=== PATIENT | female | born 1930 | race Caucasian/White ===

== ENCOUNTER 2016-12-04 07:56 | Emergency (ER) | payer MEDICARE, OTHER ==
[2016-12-04] MEDS ORDERED: Metoprolol Tartrate 50 MG Tab PO ONE (08:18)
[2016-12-04] MEDS ORDERED: Diltiazem 120 MG Cap.CD PO ONE (08:22)
[2016-12-04] MEDS ORDERED: Doxazosin 2 MG Tab PO ONE (08:23)
--- NOTE | 2016-12-04 08:28 | EDM.PDOC ---
ED HPI GENERAL MEDICAL PROBLEM - General Chief Complaint: Cardiovascular Problem Stated Complaint: [facility] Time Seen by Provider: 12/04/16 08:09 Source of Information: Reports: Patient, RN Notes Reviewed - History of Present Illness INITIAL COMMENTS - FREE TEXT/NARRATIVE: 86-year-old female started feeling nonspecific dizziness this morning. Just didn 't feel "well". She checked her blood pressure and obtained a systolic reading a bit over 200. Therefore she and her called the ambulance. She is having no chest pain or difficulty breathing. She was transported here without incident. On arrival to the ED she still feels mildly "dizzy". SHe continues to have no chest pain or shortness of breath. She states she's been coughing for about a week sometimes productive. Had surgery in her low back a few weeks ago. She has been home for about 2 weeks and in her words "recovering slowly". States she is using a walker to get around. She is getting some physical therapy at home. She states she has had some chills off and on this past week. No definite fever. Dominant pain vomiting or diarrhea. She is on multiple meds for hypertension, she has not taken mostly at this morning - Related Data Allergies Allergy/AdvReac Type Severity Reaction Status Date / Time rosuvastatin calcium Allergy Intermediate Swelling Verified 12/04/16 08:11 [From Crestor] acetaminophen Allergy Cannot Verified 12/04/16 08:11 [From Darvocet-N 100] Remember atorvastatin calcium Allergy Cannot Verified 12/04/16 08:11 [From Lipitor] Remember clindamycin Allergy Cannot Verified 12/04/16 08:14 Remember colchicine Allergy Cannot Verified 12/04/16 08:15 Remember cyclobenzaprine HCl Allergy Cannot Verified 12/04/16 08:11 [From Flexeril] Remember hydralazine [Hydralazine] Allergy Cannot Verified 12/04/16 08:11 Remember hydrochlorothiazide Allergy Cannot Verified 12/04/16 08:11 Remember hydrocodone bitartrate Allergy Cannot Verified 12/04/16 08:11 [From Lorcet 10/650] Remember lisinopril Allergy Cannot Verified 12/04/16 08:13 Remember losartan potassium Allergy Cannot Verified 12/04/16 08:11 [From Cozaar] Remember pravastatin sodium Allergy Cannot Verified 12/04/16 08:11 [From Pravachol] Remember propoxyphene napsylate Allergy Cannot Verified 12/04/16 08:11 [From Darvocet-N 100] Remember allopurinol AdvReac Mild Nausea Verified 12/04/16 08:11 calcium AdvReac Mild Stomach Verified 08/21/14 04:43 Ache isosorbide [Isosorbide] AdvReac Mild Headache Verified 12/04/16 08:11 Home Meds: Home Meds Calcitriol [Rocaltrol] 0.25 mcg PO MOWEFR 08/21/14 [History] Cholecalciferol (Vitamin D3) [Vitamin D] 2,000 unit PO DAILY 08/21/14 [History] Colesevelam HCl [Welchol] 625 mg PO BID 08/21/14 [History] Diltiazem [Cardizem] 30 mg PO Q6H #120 tab 08/21/14 [Rx] Doxazosin Mesylate [Cardura] 2 mg PO BID 08/21/14 [History] Fish Oil/[place]-3 Fatty Acids [Fish Oil] 1,000 mg PO DAILY 08/21/14 [History] Furosemide [Lasix] 40 mg PO DAILY 08/21/14 [History] Levothyroxine Sodium [Synthroid] 75 mcg PO SUTUTHSA 08/21/14 [History] Metoprolol Succinate [Toprol XL] 25 mg PO DAILY 08/21/14 [History] Multivitamin [Multivitamins] 2 cap PO DAILY 08/21/14 [History] Omeprazole 20 mg PO DAILY PRN 08/21/14 [History] Levothyroxine [Synthroid] 50 mcg PO MOWEFR 12/04/16 [History] Past Medical History HEENT History: Reports: Impaired Vision Cardiovascular History: Reports: Hypertension 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 Denies: Fever, Diaphoresis HEENT: Denies: Sinus Problem, Throat Pain Respiratory: Reports: Cough, Sputum. Denies: Shortness of Breath, Wheezing Cardiovascular: Denies: Chest Pain Endocrine: Reports: Fatigue GI/Abdominal: Denies: Abdominal Pain, Diarrhea, Nausea, Vomiting Musculoskeletal: Reports: Back Pain (Low back) Neurological: Reports: Weakness (Mild generalized). Denies: Numbness, Tingling ED EXAM, GENERAL - Physical Exam Exam: See Below General Appearance: Alert, No Apparent Distress Eye Exam: Bilateral Eye: PERRL Throat/Mouth: Normal Inspection, Normal Oropharynx Head: Atraumatic. No: Facial Swelling Neck: Supple, Full Range of Motion, Other Respiratory/Chest: No Respiratory Distress (No JVD), Lungs Clear, Normal Breath Sounds. No: Rales, Rhonchi, Wheezing Cardiovascular: Regular Rate, Rhythm GI/Abdominal: Soft, Non-Tender. No: Guarding Back Exam: No: CVA Tenderness (L), CVA Tenderness (R) Extremities: No: Pedal Edema, Leg Pain, Increased Warmth Skin Exam: Warm, Dry, Normal Color Course - Vital Signs Last Recorded V/S: Last Vital Signs Temp 97.8 F 12/04/16 08:08 Pulse 76 12/04/16 08:46 Resp 16 12/04/16 08:08 BP 160/77 H 12/04/16 08:47 Pulse Ox 97 12/04/16 08:08 - Orders/Labs/Meds Orders: Active Orders 24 hr Category Date Time Status EKG 12 Lead [EKG Documentation Completion] [RC] STAT Care 12/04/16 08:28 Active Chest 1V Frontal [CR] Stat Exams 12/04/16 08:17 Taken Labs: Laboratory Tests 12/04/16 12/04/16 Range/Units 08:35 08:35 WBC 6.19 (3.98-10.04) K/mm3 RBC 4.04 (3.98-5.22) M/mm3 Hgb 12.3 (11.2-15.7) gm/L Hct 37.0 (34.1-44.9) % MCV 91.6 (79.4-94.8) fl MCH 30.4 (25.6-32.2) pg MCHC 33.2 (32.2-35.5) g/dl RDW Std Deviation 49.3 H (36.4-46.3) fL Plt Count 280 (182-369) K/mm3 MPV 8.5 L (9.4-12.3) fl Neut % (Auto) 55.4 (34.0-71.1) % Lymph % (Auto) 21.6 (19.3-51.7) % [place] % (Auto) 16.2 H (4.7-12.5) % Eos % (Auto) 5.5 (0.7-5.8) Baso % (Auto) 0.8 (0.1-1.2) % Neut # (Auto) 3.43 (1.56-6.13) K/mm3 Lymph # (Auto) 1.34 (1.18-3.74) K/mm3 [place] # (Auto) 1.00 H (0.24-0.36) K/mm3 Eos # (Auto) 0.34 (0.04-0.36) K/mm3 Baso # (Auto) 0.05 (0.01-0.08) K/mm3 Manual Slide Review Normal smear Sodium 133 L (136-145) mEq/L Potassium 4.1 (3.5-5.1) mEq/L Chloride 98 (98-107) mEq/L Carbon Dioxide 27 (21-32) mEq/L Anion Gap 12.1 (5-15) BUN 18 (7-18) mg/dL Creatinine 1.3 H (0.55-1.02) mg/dL Est Cr Clr Drug Dosing 25.58 mL/min Estimated GFR (MDRD) 39 (>60) mL/min BUN/Creatinine Ratio 13.8 L (14-18) Glucose 106 (83-115) mg/dL Calcium 9.4 (8.5-10.1) mg/dL Total Bilirubin 0.3 (0.2-1.0) mg/dL AST 24 (15-37) U/L ALT 24 (14-59) U/L Alkaline Phosphatase 61 (46-116) U/L Total Protein 7.2 (6.4-8.2) g/dl Albumin 3.5 (3.4-5.0) g/dl Globulin 3.7 gm/dL Albumin/Globulin Ratio 1.0 (1-2) Meds: Medications Discontinued Medications Generic Name Dose Route Start Last Admin Trade Name Freq PRN Reason Stop Dose Admin Diltiazem HCl 120 mg 12/04/16 08:22 12/04/16 08:46 Cardizem Cd PO 12/04/16 08:23 120 mg ONETIME ONE Administration Doxazosin Mesylate 2 mg 12/04/16 08:23 12/04/16 08:47 Cardura PO 12/04/16 08:24 2 mg ONETIME ONE Administration Metoprolol Tartrate 50 mg 12/04/16 08:18 12/04/16 08:27 Lopressor PO 12/04/16 08:19 50 mg ONETIME ONE Administration - Re-Assessments/Exams Free Text/Narrative Re-Assessment/Exam: 12/04/16 10:05 Blood pressure has gradually trended down. X-ray is clear. Labs look good. Discharge instructions as documented Departure - Departure Time of Disposition: 09:50 Disposition: Home, Self-Care 01 Condition: Fair Clinical Impression: Hypertension Qualifiers: Hypertension type: essential hypertension Qualified Code(s): I10 - Essential ( primary) hypertension Forms: ED Department Discharge Additional Instructions: Continue current medications, drink plenty of water to maintain hydration. Follow up clinic as needed, return to ED as needed - My Orders Last 24 Hours: My Active Orders 12/04/16 08:17 Chest 1V Frontal [CR] Stat 12/04/16 08:28 EKG 12 Lead [EKG Documentation Completion] [RC] STAT - Assessment/Plan Last 24 Hours: My Active Orders 12/04/16 08:17 Chest 1V Frontal [CR] Stat 12/04/16 08:28 EKG 12 Lead [EKG Documentation Completion] [RC] STAT
[2016-12-04 12:14] VITALS: BP 159/68
--- NOTE | 2016-12-06 07:53 | CR ---
Chest: Portable view of the chest was obtained. Comparison: Previous chest x-ray of 08/21/14. Heart size at the upper limits of normal. Upper mediastinum is slightly widened believed to be due to tortuous great vessels. Tortuous thoracic aorta is seen. Minimal nodularity is noted within the right upper lung believed to represent costochondral calcification. Lungs are clear with no acute infiltrates. Bony structures are osteopenic. Mild scoliosis is present. Impression: 1. Incidental findings as noted above. Nothing acute is appreciated. Diagnostic code #2
== END 2016-12-04 10:35 | disposition home or self-care (01) ==
LOC: JD.ED 07:56
DX: I10 Essential (primary) hypertension (principal); Z98.890 Other specified postprocedural states; Z79.899 Other long term (current) drug therapy; Z88.1 Allergy status to other antibiotic agents; Z88.5 Allergy status to narcotic agent; Z88.6 Allergy status to analgesic agent; Z88.8 Allergy status to other drugs, medicaments and biological substances
CPT/HCPCS: 36415; 71010; 80053; 85025; 93005; 99285; A9270; 99284

== ENCOUNTER 2016-12-06 08:06 | Emergency (ER) | payer MEDICARE, OTHER ==
--- NOTE | 2016-12-06 08:36 | EDM.PDOC ---
ED HPI GENERAL MEDICAL PROBLEM - General Chief Complaint: Back Pain or Injury Stated Complaint: LIGHTHEADED AND WEAK Time Seen by Provider: 12/06/16 08:34 Source of Information: Reports: Patient History Limitations: Reports: No Limitations - History of Present Illness INITIAL COMMENTS - FREE TEXT/NARRATIVE: 86-year-old female attends the ED with severe chronic back pain not remedied by recent surgery [address] Posey in [place]. She still has severe right-sided sciatica and for the last few days x-rays worse than his head was in the past. She said no relief from surgical intervention. It's she's not sure what was done with the results any pedicle screws placed or disc spacers etc. Fairly surgery was 3 hours long and is unexpectedly longer than planned. She been trying to use the hydrocodone tablets 2 tablets every 6 hours but they make her quite nauseated dizzy lightheaded and in of unable to eat. He continues to lose weight. She is very dry in the mouth today. She didn't sleep hardly at all last night because she'll he took one tablet of the pain pill at bedtime trying to herself off. Therefore her major problem is pain management. States her bowels are functioning with the aid of Senokot and she is emptying her bladder normally. Onset: Gradual (Assessment low back pain with right-sided sciatica for months. Not remedied by Kenalog injections by Dr. Stark. Finally went on to have surgical intervention with Dr. Posey neurosurgeon at [facility] in [place]. This was done November 12. She reports no improvement if anything is perhaps worse than she was before the surgery.) Onset Date: 12/06/16 (Worse pain overnight.) Duration: Week(s):, Constant, Getting Worse Location: Reports: Back (With right-sided sciatica.) Quality: Reports: Ache, Burning, Same as Previous Episode, Sharp, Throbbing, Other Severity: Severe (Lancinating) Improves with: Reports: None ( currently pain is 9 out of 10.) Worsens with: Reports: Other (Standing weightbearing) Context: Reports: Other (Severe degenerative disc and arthritic changes in her lower back. Compounded by osteoporosis.). Denies: Activity, Exercise, Lifting, Sick Contact, Trauma Associated Symptoms: Reports: Malaise, Nausea/Vomiting, Weakness (Nausea without vomiting), Other (Dizzy and lightheaded.). Denies: Confusion, Chest Pain, Cough, cough w sputum, Diaphoresis, Fever/Chills, Headaches, Loss of Appetite, Rash, Seizure, Shortness of Breath, Syncope Treatments HRIS COORDINATOR: Reports: Other (see below) (Hydrocodone tablets 2 every 6 hours. ) Lower Back Pain Score (Numeric/FACES): 10 - Related Data Allergies Allergy/AdvReac Type Severity Reaction Status Date / Time rosuvastatin calcium Allergy Intermediate Swelling Verified 12/06/16 08:15 [From Crestor] acetaminophen Allergy Cannot Verified 12/06/16 08:15 [From Darvocet-N 100] Remember atorvastatin calcium Allergy Cannot Verified 12/06/16 08:15 [From Lipitor] Remember clindamycin Allergy Cannot Verified 12/06/16 08:15 Remember colchicine Allergy Cannot Verified 12/06/16 08:15 Remember cyclobenzaprine HCl Allergy Cannot Verified 12/06/16 08:15 [From Flexeril] Remember hydralazine [Hydralazine] Allergy Cannot Verified 12/06/16 08:15 Remember hydrochlorothiazide Allergy Cannot Verified 12/06/16 08:15 Remember hydrocodone bitartrate Allergy Cannot Verified 12/06/16 08:15 [From Lorcet 10/650] Remember lisinopril Allergy Cannot Verified 12/06/16 08:15 Remember losartan potassium Allergy Cannot Verified 12/06/16 08:15 [From Cozaar] Remember pravastatin sodium Allergy Cannot Verified 12/06/16 08:15 [From Pravachol] Remember propoxyphene napsylate Allergy Cannot Verified 12/06/16 08:15 [From Darvocet-N 100] Remember allopurinol AdvReac Mild Nausea Verified 12/06/16 08:15 calcium AdvReac Mild Stomach Verified 12/06/16 08:15 Ache isosorbide [Isosorbide] AdvReac Mild Headache Verified 12/06/16 08:15 Home Meds: Home Meds Calcitriol [Rocaltrol] 0.25 mcg PO MOWEFR 08/21/14 [History] Cholecalciferol (Vitamin D3) [Vitamin D] 2,000 unit PO DAILY 08/21/14 [History] Colesevelam HCl [Welchol] 625 mg PO BID 08/21/14 [History] Diltiazem [Cardizem] 30 mg PO Q6H #120 tab 08/21/14 [Rx] Doxazosin Mesylate [Cardura] 2 mg PO BID 08/21/14 [History] Fish Oil/Stacy-3 Fatty Acids [Fish Oil] 1,000 mg PO DAILY 08/21/14 [History] Furosemide [Lasix] 40 mg PO DAILY 08/21/14 [History] Levothyroxine Sodium [Synthroid] 75 mcg PO SUTUTHSA 08/21/14 [History] Metoprolol Succinate [Toprol XL] 25 mg PO DAILY 08/21/14 [History] Multivitamin [Multivitamins] 2 cap PO DAILY 08/21/14 [History] Omeprazole 20 mg PO DAILY PRN 08/21/14 [History] Levothyroxine [Synthroid] 50 mcg PO MOWEFR 12/04/16 [History] Hydrocodone/Acetaminophen [Hydrocodon-Acetaminophen 5-325] 1 each PO Q6H [History] fentaNYL [Fentanyl] 12 mcg TD Q72H #3 patch.[id number] 12/06/16 [Rx] Past Medical History HEENT History: Reports: Impaired Vision Cardiovascular History: Reports: Hypertension 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: Musculoskeletal History: Reports: Back Pain, Chronic - Past Surgical History Musculoskeletal Surgical History: Reports: Other (See Below) Other Musculoskeletal Surgeries/Procedures:: back surgery Social & Family History - Tobacco Use Smoking Status *Q: Never Smoker Years of Tobacco use: 25 - Caffeine Use Caffeine Use: Reports: Coffee - Alcohol Use Days Per Week of Alcohol Use: 7 Number of Drinks Per Day: 1 Total Drinks Per Week: 7 - Recreational Drug Use Recreational Drug Use: No - Living Situation & Occupation Living situation: Reports: , with Spouse 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 Denies: Fever, Chills HEENT: Reports: Other Respiratory: Reports: No Symptoms (Dry mouth and lips.) Cardiovascular: Reports: No Symptoms Endocrine: Reports: Fatigue GI/Abdominal: Reports: Constipation (Mild problems with constipation), Nausea ( No vomiting). Denies: Flatus, Hematemesis, Hematochezia, Melena, Stool Incontinence, Vomiting, Other : Reports: Incontinence (Some urge and stress) Musculoskeletal: Reports: Back Pain (Severe back pain. Intermittent positive neck pain and shoulder pain knee pain.) Skin: Reports: No Symptoms Neurological: Reports: Dizziness, Paresthesia, Difficulty Walking (Walks with aid of a walker.). Denies: Headache, Numbness, Tingling Psychiatric: Reports: No Symptoms Hematologic/Lymphatic: Reports: No Symptoms Immunologic: Reports: No Symptoms ED EXAM,LOWER BACK PAIN/INJURY - Physical Exam Exam: See Below Exam Limited By: No Limitations General Appearance: Alert, WD/WN, Mild Distress Eye Exam: Bilateral Eye: Normal Inspection Throat/Mouth: Other Head: Atraumatic, Normocephalic Neck: Normal Inspection, Supple, Non-Tender, Full Range of Motion. No: Lymphadenopathy (L), Lymphadenopathy (R) Respiratory/Chest: No Respiratory Distress, Lungs Clear, Normal Breath Sounds, No Accessory Muscle Use Cardiovascular: Regular Rate, Rhythm, No Edema, No Gallop, No Murmur, No Rub, Other (Very weak pulses are palpable the posterior tibials bilaterally in her feet.) GI/Abdominal: Normal Bowel Sounds, Soft, Non-Tender, No Organomegaly, Other ( Slightly hyperactive bowel sounds throughout.) Back Exam: Other (Surgical wounds lower lumbar spine midline is healing adequately with no signs of infection.) Extremities: Normal Inspection, Normal Range of Motion, Non-Tender, No Pedal Edema Neurological: Alert, Normal Mood/Affect, CN II-XII Intact, No Motor/Sensory Deficits, Oriented x 3 (Severe neuropathy right leg.). No: Normal Gait, Normal Reflexes DTR - Lower Extremities: 0: Ankle (R), Ankle (L), 1+: Knee (R), Knee (L) Psychiatric: Normal Affect, Normal Mood, Other (Appears tired and worn out.) Skin Exam: Dry, Intact, Normal Color, No Rash Course - Vital Signs Last Recorded V/S: Last Vital Signs Temp 36.7 C 12/06/16 08:12 Pulse 82 12/06/16 08:12 Resp 18 12/06/16 08:12 BP 188/81 H 12/06/16 08:12 Pulse Ox 99 12/06/16 08:12 Orthostatic Blood Pressure [ 148/75 Standing] Orthostatic Blood Pressure [ 178/88 Sitting] Orthostatic Blood Pressure [ 173/71 Supine] - Orders/Labs/Meds Orders: Active Orders 24 hr Category Date Time Status Orthostatic Vital Signs [RC] ASDIRECTED Care 12/06/16 08:11 Active Lumbar Spine 2 or 3V [CR] Stat Exams 12/06/16 08:46 Taken Sodium Chloride 0.9% [Normal Saline] 1,000 ml Med 12/06/16 08:45 Active IV ASDIRECTED fentaNYL [Duragesic] Med 12/06/16 09:00 Active 12 mcg TRDERM Q72H Medication Orders Fentanyl (Duragesic) 12 mcg TRDERM Q72H YARITZA Last Admin: 12/06/16 09:00 Dose: 12 mcg Sodium Chloride (Normal Saline) 1,000 mls @ 250 mls/hr IV ASDIRECTED YARITZA Last Admin: 12/06/16 08:44 Dose: 250 mls/hr Labs: Laboratory Tests 12/06/16 12/06/16 12/06/16 Range/Units 08:45 08:45 08:45 WBC 6.99 (3.98-10.04) K/mm3 RBC 3.99 (3.98-5.22) M/mm3 Hgb 12.2 (11.2-15.7) gm/L Hct 36.0 (34.1-44.9) % MCV 90.2 (79.4-94.8) fl MCH 30.6 (25.6-32.2) pg MCHC 33.9 (32.2-35.5) g/dl RDW Std Deviation 48.6 H (36.4-46.3) fL Plt Count 267 (182-369) K/mm3 MPV 8.6 L (9.4-12.3) fl Neutrophils % (Manual) 71 H (40-60) % Band Neutrophils % 0 (0-10) % Lymphocytes % (Manual) 20 (20-40) % Atypical Lymphs % 0 % Monocytes % (Manual) 6 (2-10) % Eosinophils % (Manual) 1 (0.7-5.8) % Basophils % (Manual) 2 H (0.1-1.2) Platelet Estimate Adequate RBC Morph Comment Normal ESR 38 H (0-20) mm/hr Sodium 133 L (136-145) mEq/L Potassium 3.7 (3.5-5.1) mEq/L Chloride 98 (98-107) mEq/L Carbon Dioxide 22 (21-32) mEq/L Anion Gap 16.7 H (5-15) BUN 16 (7-18) mg/dL Creatinine 1.3 H (0.55-1.02) mg/dL Est Cr Clr Drug Dosing 23.80 mL/min Estimated GFR (MDRD) 39 (>60) mL/min BUN/Creatinine Ratio 12.3 L (14-18) Glucose 120 H (83-115) mg/dL Calcium 9.4 (8.5-10.1) mg/dL Magnesium 1.6 L (1.8-2.4) mg/dl Total Bilirubin 0.4 (0.2-1.0) mg/dL AST 25 (15-37) U/L ALT 22 (14-59) U/L Alkaline Phosphatase 60 (46-116) U/L C-Reactive Protein < 0.2 (<1.0) mg/dL B-Natriuretic Peptide (0-100) pg/mL Total Protein 7.3 (6.4-8.2) g/dl Albumin 3.7 (3.4-5.0) g/dl Globulin 3.6 gm/dL Albumin/Globulin Ratio 1.0 (1-2) 12/06/16 Range/Units 08:45 WBC (3.98-10.04) K/mm3 RBC (3.98-5.22) M/mm3 Hgb (11.2-15.7) gm/L Hct (34.1-44.9) % MCV (79.4-94.8) fl MCH (25.6-32.2) pg MCHC (32.2-35.5) g/dl RDW Std Deviation (36.4-46.3) fL Plt Count (182-369) K/mm3 MPV (9.4-12.3) fl Neutrophils % (Manual) (40-60) % Band Neutrophils % (0-10) % Lymphocytes % (Manual) (20-40) % Atypical Lymphs % % Monocytes % (Manual) (2-10) % Eosinophils % (Manual) (0.7-5.8) % Basophils % (Manual) (0.1-1.2) Platelet Estimate RBC Morph Comment ESR (0-20) mm/hr Sodium (136-145) mEq/L Potassium (3.5-5.1) mEq/L Chloride (98-107) mEq/L Carbon Dioxide (21-32) mEq/L Anion Gap (5-15) BUN (7-18) mg/dL Creatinine (0.55-1.02) mg/dL Est Cr Clr Drug Dosing mL/min Estimated GFR (MDRD) (>60) mL/min BUN/Creatinine Ratio (14-18) Glucose (83-115) mg/dL Calcium (8.5-10.1) mg/dL Magnesium (1.8-2.4) mg/dl Total Bilirubin (0.2-1.0) mg/dL AST (15-37) U/L ALT (14-59) U/L Alkaline Phosphatase (46-116) U/L C-Reactive Protein (<1.0) mg/dL B-Natriuretic Peptide 151 H (0-100) pg/mL Total Protein (6.4-8.2) g/dl Albumin (3.4-5.0) g/dl Globulin gm/dL Albumin/Globulin Ratio (1-2) Meds: Medications Generic Name Dose Route Start Last Admin Trade Name Freq PRN Reason Stop Dose Admin Fentanyl 12 mcg 12/06/16 09:00 12/06/16 09:00 Duragesic TRDERM 12 mcg Q72H YARITZA Administration Sodium Chloride 1,000 mls @ 250 mls/hr 12/06/16 08:45 12/06/16 08:44 Normal Saline IV 250 mls/hr ASDIRECTED YARITZA Administration Discontinued Medications Generic Name Dose Route Start Last Admin Trade Name Freq PRN Reason Stop Dose Admin Hydromorphone HCl 0.5 mg 12/06/16 08:45 12/06/16 09:00 Dilaudid IVPUSH 12/06/16 08:46 0.5 mg ONETIME ONE Administration Metoclopramide HCl 5 mg 12/06/16 08:46 12/06/16 08:59 Reglan IVPUSH 12/06/16 08:47 5 mg ONETIME ONE Administration - Radiology Interpretation Free Text/Narrative:: 86-year-old female presents the ED with severe pain in her lower back for many months. No better since surgery that was carried over the lower back by Dr. Posey neurosurgeon at [facility] in [place] on November 12. In fact over the last few days sciatica right leg down to the ankle has perhaps gotten worse. She is not sure if she has any hardware placed during the surgery. She's been trying to use hydrocodone 5/3/25 milligrams strength tablets 2 every 6 hours for pain relief but make her very dizzy lightheaded and nauseated which has limited her ability to eat and her mobility. She is supposed to be in physiotherapy but every time she goes the pain is worse in her right leg. She didn't sleep at all last night due to severity of the pain. She tried to cut back to one tablet of hydrocodone overnight which did not work. Bowels are somewhat slowed down by medication but working with the aid of Senokot. Plan to review of her lumbar spine will be carried out. I'm going to start an IV and give her normal saline at 250 mils per hour until I can assess her volume status. She appears dry at this time. Magnesium and electrolytes will be obtained. Plan will be to place her on 12 g of fentanyl per hour patch while in the ED as it takes several hours to work. She is not narcotic gordon and may do much better with the fentanyl patch them with her current pain management regimen. - Re-Assessments/Exams Free Text/Narrative Re-Assessment/Exam: 12/06/16 09:16 x-rays of the lumbar spine revealed no retained hardware. Patient has severe scoliosis of the lower back concave to the right. There is advanced degenerative arthritic and disc disease throughout the entire lumbar spine but particularly the lower spine. She could easily have severe spinal stenosis that was not necessarily relieved by the surgery. 12/06/16 10:00 labs are back. White count was 6.99 with 71% neutrophils and no bands. Hemoglobin is 12.2. Hematocrit is 36.0. Platelets 2 67,000. Sedimentation rate today is 38. Sodium 133 potassium 3.7. Chloride 90 bicarbonate 22. Anion gap is mildly elevated at 16.7. Patient has received approximately 350 mils of saline IV. Creatinine is 1.3 glucose 120 BNP 151. She' ll therefore be discharged home on fentanyl patch 12 g per hour and I wrote enough to last her for 2 weeks. She'll patch was intact placed in the ED. She will follow-up with her personal care physician in regards to pain management after this time and she can still use the occasional Percocet 5/3/25 one tablet every 4-6 hours for breakthrough pain if needed. Advised a at least a bottle of Gatorade daily for the next week or more to maintain hydration restore her electrolyte status. Departure - Departure Time of Disposition: 10:09 Disposition: Home, Self-Care 01 Condition: Fair Clinical Impression: Lumbosacral radiculopathy due to degenerative joint disease of spine - Discharge Information Prescriptions: fentaNYL [Fentanyl] 12 mcg TD Q72H #3 patch.[id number] Referrals: Loyda Larry MD [Primary Care Provider] - Additional Instructions: Evaluation the emergency room today primarily in regards to pain management of severe low back pain with radiculopathy down the right leg to the ankle. Unfortunately surgery 3 weeks ago did not improve the situation and you are struggling with pain management. Current pain medications causing nausea and lightheadedness and dizziness which is a common side effect. So causes constipation slowing of the urinary bladder dryness of the mouth and decrease in appetite. X-rays of your back done today reveal that no hardware was placed in your lower back at the time of operative intervention. It appears that some disc surgery was carried out . It appears that there is still a nerve entrapment clinically on the right side with radiculopathy into the right leg. This can come from both lumbar 4 lumbar V nerve root. The opening where the nerve traverses through the spine down the leg is very narrow in the lumbar spine. My suggestions is try a new pain medication the form of a fentanyl patch 12 g which is delivered every hour for 72 consecutive hours to relieve pain. It does not cause as much nausea initially it might cause some fatigue. It will cause dryness of the mouth and constipation. I've written a prescription for 3 more patches which which get used to the next day we did have. Manisha personal care physician in regards to chronic pain management of the final patches are successful in controlling pain until follow-up with Dr. Posey. - My Orders Last 24 Hours: My Active Orders 12/06/16 08:11 Orthostatic Vital Signs [RC] ASDIRECTED 12/06/16 08:45 Sodium Chloride 0.9% [Normal Saline] 1,000 ml IV ASDIRECTED 12/06/16 08:46 Lumbar Spine 2 or 3V [CR] Stat 12/06/16 09:00 fentaNYL [Duragesic] 12 mcg TRDERM Q72H - Assessment/Plan Last 24 Hours: My Active Orders 12/06/16 08:11 Orthostatic Vital Signs [RC] ASDIRECTED 12/06/16 08:45 Sodium Chloride 0.9% [Normal Saline] 1,000 ml IV ASDIRECTED 12/06/16 08:46 Lumbar Spine 2 or 3V [CR] Stat 12/06/16 09:00 fentaNYL [Duragesic] 12 mcg TRDERM Q72H
[2016-12-06] MEDS ORDERED: Sodium Chloride 0.9% 1,000 ML IV SCH (08:45)
[2016-12-06] MEDS ORDERED: HYDROmorphone 0.5 MG/0.5 ML Syringe IVPUSH ONE (08:45)
[2016-12-06] MEDS ORDERED: Metoclopramide 10 MG/2 ML SDV IVPUSH ONE (08:46)
[2016-12-06] MEDS ORDERED: fentaNYL 12 MCG/HR Transdermal Patch TRDERM SCH (09:00)
[2016-12-06 10:45] VITALS: BP 152/59
--- NOTE | 2016-12-06 11:42 | CR ---
Lumbar spine: AP and lateral views of the lumbar spine were obtained as well as coned-down lateral views centered to the lumbosacral junction. Comparison: Previous lumbar spine exam of 11/07/09. Spondylolisthesis noted at L5-S1. Spondylolisthesis measures about 1.2 cm. This is seen on prior study but which has slightly increased in severity. Severe disc space narrowing noted at L5-S1 which has also progressed from prior exam. Moderate disc space narrowing is noted at L3-L4 which is stable. Endplate concavity seen within the superior endplate of L3 which is slightly more prominent than on prior exam but most likely old. Lateral loss of height is seen along the left side of L3 along the concave side of a scoliotic curve. Other vertebral body heights are maintained. Scattered endplate osteophytes are seen. Scoliosis noted within the spine which has increased in severity from prior exam. Impression: 1. Scoliosis and degenerative change which has progressed from previous exam. 2. Increased spondylolisthesis at L4-L5 from prior exam. 3. Nothing acute is definitely appreciated. Diagnostic code #3
== END 2016-12-06 10:20 | disposition home or self-care (01) ==
LOC: JD.ED 08:06
DX: M47.27 Other spondylosis with radiculopathy, lumbosacral region (principal); I10 Essential (primary) hypertension; Z88.8 Allergy status to other drugs, medicaments and biological substances; Z88.5 Allergy status to narcotic agent; Z79.899 Other long term (current) drug therapy
CPT/HCPCS: 36415; 72100; 80053; 83735; 83880; 85025; 85652; 86140; 96361; 96374; 96375; 99284; A9270; J1170; J2765; J7040; 99283

== ENCOUNTER 2017-04-23 08:15 | Emergency (ER) | payer MEDICARE, OTHER ==
[2017-04-23 08:24] VITALS: BP 158/70
[2017-04-23] MEDS ORDERED: Sodium Chloride 0.9% 10 ML Syringe FLUSH PRN (08:59)
--- NOTE | 2017-04-23 09:03 | EDM.PDOC ---
ED HPI GENERAL MEDICAL PROBLEM - General Chief Complaint: Gastrointestinal Problem Stated Complaint: NAUSEA/VOMITING Time Seen by Provider: 04/23/17 08:31 Source of Information: Reports: Patient History Limitations: Reports: No Limitations - History of Present Illness INITIAL COMMENTS - FREE TEXT/NARRATIVE: The patient is an 86-year-old female with a chief complaint of blood in the stool. Yesterday she states she felt mildly nauseated. She was also constipated. No vomiting or abdominal pain. Last evening she took 2 tablets of Ex-Lax. During the night, she states she had a couple of bowel movements. She states it sounded watery but she didn't look at the stool. This morning she had another bowel movement and states that there was watery blood and also some smaller hard stools. She also had an episode of bleeding from the rectum while she was urinating without a bowel movement. No history of similar symptoms. No rectal pain. No abdominal pain. No vomiting. She continues to have some mild nausea. She otherwise feels okay. No weakness or dizziness. She does not take any blood thinners. She's never had bleeding like this before. She has never had a colonoscopy. - Related Data Allergies Allergy/AdvReac Type Severity Reaction Status Date / Time rosuvastatin calcium Allergy Intermediate Swelling Verified 04/23/17 08:24 [From Crestor] acetaminophen Allergy Cannot Verified 04/23/17 08:24 [From Darvocet-N 100] Remember atorvastatin calcium Allergy Cannot Verified 04/23/17 08:24 [From Lipitor] Remember clindamycin Allergy Cannot Verified 04/23/17 08:24 Remember colchicine Allergy Cannot Verified 04/23/17 08:24 Remember cyclobenzaprine HCl Allergy Cannot Verified 04/23/17 08:24 [From Flexeril] Remember hydralazine [Hydralazine] Allergy Cannot Verified 04/23/17 08:24 Remember hydrochlorothiazide Allergy Cannot Verified 04/23/17 08:24 Remember hydrocodone bitartrate Allergy Cannot Verified 04/23/17 08:24 [From Lorcet 10650] Remember lisinopril Allergy Cannot Verified 04/23/17 08:24 Remember losartan potassium Allergy Cannot Verified 04/23/17 08:24 [From Cozaar] Remember pravastatin sodium Allergy Cannot Verified 04/23/17 08:24 [From Pravachol] Remember propoxyphene napsylate Allergy Cannot Verified 04/23/17 08:24 [From Darvocet-N 100] Remember allopurinol AdvReac Mild Nausea Verified 04/23/17 08:24 calcium AdvReac Mild Stomach Verified 04/23/17 08:24 Ache isosorbide [Isosorbide] AdvReac Mild Headache Verified 04/23/17 08:24 Home Meds: Home Meds Calcitriol [Rocaltrol] 0.25 mcg PO MOWEFR 08/21/14 [History] Cholecalciferol (Vitamin D3) [Vitamin D] 2,000 unit PO DAILY 08/21/14 [History] Colesevelam HCl [Welchol] 625 mg PO BID 08/21/14 [History] Diltiazem IR [Cardizem] 30 mg PO Q6H #120 tab 08/21/14 [Rx] Doxazosin Mesylate [Cardura] 2 mg PO BID 08/21/14 [History] Fish Oil/[place]-3 Fatty Acids [Fish Oil] 1,000 mg PO DAILY 08/21/14 [History] Furosemide [Lasix] 40 mg PO DAILY 08/21/14 [History] Levothyroxine Sodium [Synthroid] 75 mcg PO SUTUTHSA 08/21/14 [History] Metoprolol Succinate [Toprol XL] 25 mg PO DAILY 08/21/14 [History] Multivitamin [Multivitamins] 2 cap PO DAILY 08/21/14 [History] Omeprazole 20 mg PO DAILY PRN 08/21/14 [History] Levothyroxine [Synthroid] 50 mcg PO MOWEFR 12/04/16 [History] Hydrocodone/Acetaminophen [Hydrocodon-Acetaminophen 5-325] 1 each PO Q6H [History] Past Medical History HEENT History: Reports: Impaired Vision 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: Musculoskeletal History: Reports: Back Pain, Chronic - Past Surgical History Musculoskeletal Surgical History: Reports: Other (See Below) Other Musculoskeletal Surgeries/Procedures:: back surgery Social & Family History - Tobacco Use Smoking Status *Q: Unknown Ever Smoked Years of Tobacco use: 25 - Caffeine Use Caffeine Use: Reports: Coffee - Alcohol Use Days Per Week of Alcohol Use: 7 Number of Drinks Per Day: 1 Total Drinks Per Week: 7 - Recreational Drug Use Recreational Drug Use: No - Living Situation & Occupation Living situation: Reports: , with Spouse Occupation: Retired ED ROS GENERAL - Review of Systems Review Of Systems: See Below Constitutional: Denies: Fever, Weakness HEENT: Reports: No Symptoms Respiratory: Denies: Cough Cardiovascular: Denies: Chest Pain Endocrine: Reports: No Symptoms GI/Abdominal: Reports: Nausea. Denies: Abdominal Pain : Denies: Dysuria Musculoskeletal: Reports: No Symptoms Skin: Reports: No Symptoms Neurological: Reports: No Symptoms Psychiatric: Reports: No Symptoms Hematologic/Lymphatic: Denies: Easy Bleeding ED EXAM, GI/ABD - Physical Exam Exam: See Below Exam Limited By: No Limitations General Appearance: Alert, WD/WN, No Apparent Distress Eyes: Bilateral: Normal Appearance Ears: Normal External Exam Nose: Normal Inspection Throat/Mouth: Normal Inspection, Normal Voice, No Airway Compromise Head: Atraumatic, Normocephalic Neck: Normal Inspection, Supple, Non-Tender, Full Range of Motion Respiratory/Chest: No Respiratory Distress, Lungs Clear, Normal Breath Sounds Cardiovascular: Normal Peripheral Pulses, Regular Rate, Rhythm, No Murmur GI/Abdominal Exam: Soft, Non-Tender, No Distention. No: Rebound Rectal (Female) Exam: Normal Exam, Normal Rectal Tone, Bloody Stool, Heme + Stool. No: Black Stool, Hemorrhoids Extremities: Normal Inspection Neurological: Alert, Oriented, Normal Cognition, No Motor/Sensory Deficits Psychiatric: Normal Affect, Normal Mood Skin Exam: Warm, Dry, Intact, Normal Color, No Rash Course - Vital Signs Last Recorded V/S: Last Vital Signs Temp 36.9 C 04/23/17 08:20 Pulse 73 04/23/17 08:20 Resp 18 04/23/17 08:20 BP 158/70 H 04/23/17 08:20 Pulse Ox 98 04/23/17 08:20 - Orders/Labs/Meds Orders: Active Orders 24 hr Category Date Time Status Cardiac Monitoring [RC] . DIRECTED Care 04/23/17 08:58 Active Peripheral IV Care [RC] . DIRECTED Care 04/23/17 08:59 Active Peripheral IV Insertion Adult [OM.PC] Routine Oth 04/23/17 08:59 Ordered Labs: Laboratory Tests 04/23/17 04/23/17 04/23/17 Range/Units 09:10 09:10 09:10 WBC 7.48 (3.98-10.04) K/mm3 RBC 3.31 L (3.98-5.22) M/mm3 Hgb 10.8 L (11.2-15.7) gm/L Hct 31.2 L (34.1-44.9) % MCV 94.3 (79.4-94.8) fl MCH 32.6 H (25.6-32.2) pg MCHC 34.6 (32.2-35.5) g/dl RDW Std Deviation 42.0 (36.4-46.3) fL Plt Count 183 (182-369) K/mm3 MPV 8.6 L (9.4-12.3) fl Neut % (Auto) 77.1 H (34.0-71.1) % Lymph % (Auto) 9.5 L (19.3-51.7) % Lyman % (Auto) 12.7 H (4.7-12.5) % Eos % (Auto) 0.3 L (0.7-5.8) Baso % (Auto) 0.1 (0.1-1.2) % Neut # (Auto) 5.77 (1.56-6.13) K/mm3 Lymph # (Auto) 0.71 L (1.18-3.74) K/mm3 Lyman # (Auto) 0.95 H (0.24-0.36) K/mm3 Eos # (Auto) 0.02 L (0.04-0.36) K/mm3 Baso # (Auto) 0.01 (0.01-0.08) K/mm3 Manual Slide Review Abnormal smear PT 10.0 (8.0-13.0) SECONDS INR 0.92 Sodium 128 L (136-145) mEq/L Potassium 4.2 (3.5-5.1) mEq/L Chloride 94 L (98-107) mEq/L Carbon Dioxide 23 (21-32) mEq/L Anion Gap 15.2 H (5-15) BUN 19 H (7-18) mg/dL Creatinine 1.6 H (0.55-1.02) mg/dL Est Cr Clr Drug Dosing 17.53 mL/min Estimated GFR (MDRD) 31 (>60) mL/min BUN/Creatinine Ratio 11.9 L (14-18) Glucose 124 H (83-115) mg/dL Lactic Acid (0.4-2.0) mmol/L Calcium 9.3 (8.5-10.1) mg/dL Total Bilirubin 0.4 (0.2-1.0) mg/dL AST 28 (15-37) U/L ALT 20 (14-59) U/L Alkaline Phosphatase 68 (46-116) U/L Total Protein 7.0 (6.4-8.2) g/dl Albumin 3.6 (3.4-5.0) g/dl Globulin 3.4 gm/dL Albumin/Globulin Ratio 1.1 (1-2) Lipase 156 (73-393) U/L Urine Color (Yellow) Urine Appearance (Clear) Urine pH (5.0-8.0) Ur Specific Mccracken (1.005-1.030) Urine Protein (Negative) Urine Glucose (UA) (Negative) Urine Ketones (Negative) Urine Occult Blood (Negative) Urine Nitrite (Negative) Urine Bilirubin (Negative) Urine Urobilinogen (0.2-1.0) Ur Leukocyte Esterase (Negative) Urine RBC (0-5) /hpf Urine WBC (0-5) /hpf Ur Epithelial Cells (0-5) /hpf Urine Bacteria (FEW) /hpf Urine Mucus (FEW) /hpf Blood Type Gel Antibody Screen 04/23/17 04/23/17 04/23/17 Range/Units 09:10 09:10 09:25 WBC (3.98-10.04) K/mm3 RBC (3.98-5.22) M/mm3 Hgb (11.2-15.7) gm/L Hct (34.1-44.9) % MCV (79.4-94.8) fl MCH (25.6-32.2) pg MCHC (32.2-35.5) g/dl RDW Std Deviation (36.4-46.3) fL Plt Count (182-369) K/mm3 MPV (9.4-12.3) fl Neut % (Auto) (34.0-71.1) % Lymph % (Auto) (19.3-51.7) % Lyman % (Auto) (4.7-12.5) % Eos % (Auto) (0.7-5.8) Baso % (Auto) (0.1-1.2) % Neut # (Auto) (1.56-6.13) K/mm3 Lymph # (Auto) (1.18-3.74) K/mm3 Lyman # (Auto) (0.24-0.36) K/mm3 Eos # (Auto) (0.04-0.36) K/mm3 Baso # (Auto) (0.01-0.08) K/mm3 Manual Slide Review PT (8.0-13.0) SECONDS INR Sodium (136-145) mEq/L Potassium (3.5-5.1) mEq/L Chloride (98-107) mEq/L Carbon Dioxide (21-32) mEq/L Anion Gap (5-15) BUN (7-18) mg/dL Creatinine (0.55-1.02) mg/dL Est Cr Clr Drug Dosing mL/min Estimated GFR (MDRD) (>60) mL/min BUN/Creatinine Ratio (14-18) Glucose (83-115) mg/dL Lactic Acid 1.2 (0.4-2.0) mmol/L Calcium (8.5-10.1) mg/dL Total Bilirubin (0.2-1.0) mg/dL AST (15-37) U/L ALT (14-59) U/L Alkaline Phosphatase (46-116) U/L Total Protein (6.4-8.2) g/dl Albumin (3.4-5.0) g/dl Globulin gm/dL Albumin/Globulin Ratio (1-2) Lipase (73-393) U/L Urine Color Yellow (Yellow) Urine Appearance Clear (Clear) Urine pH 6.5 (5.0-8.0) Ur Specific Mccracken 1.015 (1.005-1.030) Urine Protein Negative (Negative) Urine Glucose (UA) Negative (Negative) Urine Ketones Negative (Negative) Urine Occult Blood Negative (Negative) Urine Nitrite Negative (Negative) Urine Bilirubin Negative (Negative) Urine Urobilinogen 0.2 (0.2-1.0) Ur Leukocyte Esterase Negative (Negative) Urine RBC Not seen (0-5) /hpf Urine WBC 0-5 (0-5) /hpf Ur Epithelial Cells 0-5 (0-5) /hpf Urine Bacteria Few (FEW) /hpf Urine Mucus Not seen (FEW) /hpf Blood Type O POSITIVE Gel Antibody Screen Negative 04/23/17 Range/Units 11:15 WBC (3.98-10.04) K/mm3 RBC (3.98-5.22) M/mm3 Hgb 10.9 L (11.2-15.7) gm/L Hct 31.4 L (34.1-44.9) % MCV (79.4-94.8) fl MCH (25.6-32.2) pg MCHC (32.2-35.5) g/dl RDW Std Deviation (36.4-46.3) fL Plt Count (182-369) K/mm3 MPV (9.4-12.3) fl Neut % (Auto) (34.0-71.1) % Lymph % (Auto) (19.3-51.7) % Lyman % (Auto) (4.7-12.5) % Eos % (Auto) (0.7-5.8) Baso % (Auto) (0.1-1.2) % Neut # (Auto) (1.56-6.13) K/mm3 Lymph # (Auto) (1.18-3.74) K/mm3 Lyman # (Auto) (0.24-0.36) K/mm3 Eos # (Auto) (0.04-0.36) K/mm3 Baso # (Auto) (0.01-0.08) K/mm3 Manual Slide Review PT (8.0-13.0) SECONDS INR Sodium (136-145) mEq/L Potassium (3.5-5.1) mEq/L Chloride (98-107) mEq/L Carbon Dioxide (21-32) mEq/L Anion Gap (5-15) BUN (7-18) mg/dL Creatinine (0.55-1.02) mg/dL Est Cr Clr Drug Dosing mL/min Estimated GFR (MDRD) (>60) mL/min BUN/Creatinine Ratio (14-18) Glucose (83-115) mg/dL Lactic Acid (0.4-2.0) mmol/L Calcium (8.5-10.1) mg/dL Total Bilirubin (0.2-1.0) mg/dL AST (15-37) U/L ALT (14-59) U/L Alkaline Phosphatase (46-116) U/L Total Protein (6.4-8.2) g/dl Albumin (3.4-5.0) g/dl Globulin gm/dL Albumin/Globulin Ratio (1-2) Lipase (73-393) U/L Urine Color (Yellow) Urine Appearance (Clear) Urine pH (5.0-8.0) Ur Specific Mccracken (1.005-1.030) Urine Protein (Negative) Urine Glucose (UA) (Negative) Urine Ketones (Negative) Urine Occult Blood (Negative) Urine Nitrite (Negative) Urine Bilirubin (Negative) Urine Urobilinogen (0.2-1.0) Ur Leukocyte Esterase (Negative) Urine RBC (0-5) /hpf Urine WBC (0-5) /hpf Ur Epithelial Cells (0-5) /hpf Urine Bacteria (FEW) /hpf Urine Mucus (FEW) /hpf Blood Type Gel Antibody Screen Meds: Medications Discontinued Medications Generic Name Dose Route Start Last Admin Trade Name Freq PRN Reason Stop Dose Admin Sodium Chloride 10 ml 04/23/17 08:59 04/23/17 09:15 Saline Flush FLUSH 10 ml ASDIRECTED PRN Administration Keep Vein Open - Re-Assessments/Exams Free Text/Narrative Re-Assessment/Exam: 04/23/17 12:24 Labs show hematocrit of 31. This is down slightly from 35 the last time she was here. Labs otherwise unremarkable. Patient has had normal vital signs and has continued to be well-appearing throughout her stay here. Her rectal exam was benign. She did have one more episode of some bleeding from the rectum when she went to the bathroom. A provider who saw her after that said that it just looked like a small amount of blood on the toilet paper and a little bit in the stool. Patient does not have evidence of any quite coagulopathy. Repeat hematocrit here is unchanged. Discussed options, including continued observation versus discharge. The patient would like to go home. Given her stability, at this point a colonoscopy over the weekend is not indicated. She can follow up with her primary doctor on Tuesday and also schedule colonoscopy at that time. However if her symptoms worse, she may need to be admitted. Discussed strict return precautions. She understood. She lives with her and is able to return if her symptoms worsen. Departure - Departure Time of Disposition: 13:00 Disposition: Home, Self-Care 01 Clinical Impression: Hematochezia - Discharge Information Instructions: Gastrointestinal Bleeding Referrals: Loyda Larry MD [Primary Care Provider] - Forms: ED Department Discharge Additional Instructions: 1. Follow up with Dr. Larry on Tuesday if possible. 2. Schedule a colonoscopy for as soon as possible. Call [phone] if you'd like to schedule with a provider here. 3. Return to the Emergency Department if you have: - lightheadedness/feeling like you're going to pass out - feeling weak or dizzy - worsening bleeding with bowel movements - abdominal pain - any other concerning symptoms - My Orders Last 24 Hours: My Active Orders 04/23/17 08:58 Cardiac Monitoring [RC] . DIRECTED 04/23/17 08:59 Peripheral IV Care [RC] . DIRECTED Peripheral IV Insertion Adult [OM.PC] Routine - Assessment/Plan Last 24 Hours: My Active Orders 04/23/17 08:58 Cardiac Monitoring [RC] . DIRECTED 04/23/17 08:59 Peripheral IV Care [RC] . DIRECTED Peripheral IV Insertion Adult [OM.PC] Routine
== END 2017-04-23 13:17 | disposition home or self-care (01) ==
LOC: JD.ED 08:15
DX: K92.1 Melena (principal); I10 Essential (primary) hypertension; Z79.899 Other long term (current) drug therapy; Z88.1 Allergy status to other antibiotic agents; Z88.8 Allergy status to other drugs, medicaments and biological substances; Z88.6 Allergy status to analgesic agent
CPT/HCPCS: 36415; 80053; 81001; 83605; 83690; 85014; 85018; 85025; 85610; 86850; 86900; 86901; 99283; J7050; 99284

== ENCOUNTER 2019-08-27 14:03 | Emergency (ER) | payer MEDICARE, OTHER ==
[2019-08-27 14:16] VITALS: BP 148/64; PULSE 72
--- NOTE | 2019-08-27 14:41 | EDM.PDOC ---
ED HPI GENERAL MEDICAL PROBLEM - General Chief Complaint: ENT Problem Stated Complaint: NOSE BLEED Time Seen by Provider: 08/27/19 14:10 Source of Information: Reports: Patient History Limitations: Reports: No Limitations - History of Present Illness INITIAL COMMENTS - FREE TEXT/NARRATIVE: Patient is an 89-year-old female who presents with complaints of a right-sided nosebleed. The bleeding had resolved by the time she arrived to the ER. Patient states approximately 1 hour prior to arrival she stuck her finger in her nose to itch it and it began bleeding. She states it did stop bleeding at one point, however started bleeding again shortly thereafter. She describes "a lot of blood "that was running down her throat as well as out the right nare. She has had no dizziness. Patient takes aspirin 81 mg Wednesdays and Fridays. 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 - Related Data Allergies Allergy/AdvReac Type Severity Reaction Status Date / Time rosuvastatin calcium Allergy Intermediate Swelling Verified 04/23/17 08:24 [From Crestor] acetaminophen Allergy Cannot Verified 04/23/17 08:24 [From Darvocet-N 100] Remember atorvastatin calcium Allergy Cannot Verified 04/23/17 08:24 [From Lipitor] Remember clindamycin Allergy Cannot Verified 04/23/17 08:24 Remember colchicine Allergy Cannot Verified 04/23/17 08:24 Remember cyclobenzaprine HCl Allergy Cannot Verified 04/23/17 08:24 [From Flexeril] Remember hydralazine [Hydralazine] Allergy Cannot Verified 04/23/17 08:24 Remember hydrochlorothiazide Allergy Cannot Verified 04/23/17 08:24 Remember hydrocodone bitartrate Allergy Cannot Verified 04/23/17 08:24 [From Lorcet 10/650] Remember lisinopril Allergy Cannot Verified 04/23/17 08:24 Remember losartan potassium Allergy Cannot Verified 04/23/17 08:24 [From Cozaar] Remember pravastatin sodium Allergy Cannot Verified 04/23/17 08:24 [From Pravachol] Remember propoxyphene napsylate Allergy Cannot Verified 04/23/17 08:24 [From Darvocet-N 100] Remember allopurinol AdvReac Mild Nausea Verified 04/23/17 08:24 calcium AdvReac Mild Stomach Verified 04/23/17 08:24 Ache isosorbide [Isosorbide] AdvReac Mild Headache Verified 04/23/17 08:24 Home Meds: Home Meds Calcitriol [Rocaltrol] 0.25 mcg PO MOWEFR 08/21/14 [History] Cholecalciferol (Vitamin D3) [Vitamin D] 2,000 unit PO DAILY 08/21/14 [History] Colesevelam HCl [Welchol] 625 mg PO BID 08/21/14 [History] Diltiazem IR [Cardizem] 30 mg PO Q6H #120 tab 08/21/14 [Rx] Doxazosin Mesylate [Cardura] 2 mg PO BID 08/21/14 [History] Fish Oil/[place]-3 Fatty Acids [Fish Oil] 1,000 mg PO DAILY 08/21/14 [History] Furosemide [Lasix] 40 mg PO DAILY 08/21/14 [History] Levothyroxine Sodium [Synthroid] 75 mcg PO SUTUTHSA 08/21/14 [History] Metoprolol Succinate [Toprol XL] 25 mg PO DAILY 08/21/14 [History] Multivitamin [Multivitamins] 2 cap PO DAILY 08/21/14 [History] Omeprazole 20 mg PO DAILY PRN 08/21/14 [History] Levothyroxine [Synthroid] 50 mcg PO MOWEFR 12/04/16 [History] Hydrocodone/Acetaminophen [Hydrocodon-Acetaminophen 5-325] 1 each PO Q6H [History] Past Medical History HEENT History: Reports: Impaired Vision 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: Musculoskeletal History: Reports: Back Pain, Chronic - Past Surgical History Musculoskeletal Surgical History: Reports: Other (See Below) Other Musculoskeletal Surgeries/Procedures:: back surgery Social & Family History - Tobacco Use Smoking Status *Q: Former Smoker Used Tobacco, but Quit: Yes Month/Year Tobacco Last Used: 30 yrs - Caffeine Use Caffeine Use: Reports: Coffee - Recreational Drug Use Recreational Drug Use: No - Living Situation & Occupation Living situation: Reports: , with Spouse Occupation: Retired ED ROS ENT - Review of Systems Review Of Systems: Comprehensive ROS is negative, except as noted in HPI. ED EXAM, ENT - Physical Exam Exam: See Below Exam Limited By: No Limitations General Appearance: Alert, WD/WN, No Apparent Distress Nose: Normal Inspection, Other (Small abrasion to the septum of the right nare. No active bleeding.) Mouth/Throat: Normal Inspection, Normal Gums, Normal Lips, Normal Oropharynx, Normal Teeth Respiratory/Chest: No Respiratory Distress, Lungs Clear, Normal Breath Sounds, No Accessory Muscle Use, Chest Non-Tender Cardiovascular: Normal Peripheral Pulses, Regular Rate, Rhythm, No Edema, No Gallop, No JVD, No Murmur, No Rub Neurological: Alert, Oriented, CN II-XII Intact, Normal Cognition, Normal Gait, Normal Reflexes, No Motor/Sensory Deficits Psychiatric: Normal Affect, Normal Mood Skin: Warm, Dry, Intact, Normal Color, No Rash Course - Vital Signs Last Recorded V/S: Last Vital Signs Temp 98.6 F 08/27/19 14:15 Pulse 72 08/27/19 14:15 Resp 20 08/27/19 14:15 BP 148/64 H 08/27/19 14:15 Pulse Ox 100 08/27/19 14:15 - Orders/Labs/Meds Labs: Laboratory Tests 08/27/19 Range/Units 14:32 Hgb 10.6 L D (11.2-15.7) gm/dl Hct 33.2 L (34.1-44.9) % - Re-Assessments/Exams Free Text/Narrative Re-Assessment/Exam: 08/27/19 14:40 On exam, patient does have a small abrasion to the septum of her right nare. There was no active bleeding. I applied bacitracin ointment to the area. We will check an H&H and monitor to see if it starts bleeding again. 08/27/19 15:17 Hemoglobin was found to be 10.6. The patient has had no further bleeding from her nose. We will discharge her home. Discharge instructions as documented. Departure - Departure Time of Disposition: 15:17 Disposition: Home, Self-Care 01 Condition: Fair Clinical Impression: Epistaxis - Discharge Information *PRESCRIPTION DRUG MONITORING PROGRAM REVIEWED*: No *COPY OF PRESCRIPTION DRUG MONITORING REPORT IN PATIENT JEEVAN: No Instructions: Nosebleed, [id number] Referrals: Loyda Larry MD [Primary Care Provider] - Forms: ED Department Discharge Additional Instructions: You were seen in the emergency department today for a right-sided nosebleed. By the time you arrived to the ER, your nose had stopped bleeding. Your hemoglobin was checked and found to be 10.6. There was no further bleeding from your nose while you were in the ER. Recommend that you put Vaseline in the right nare a couple times daily for the next few days to keep it moist and prevent bleeding. Refrain from rubbing, picking, or blowing your nose as much as possible. If the bleeding should recur, apply gentle pressure while leaning forward. The bleeding does not subside, please return to the ER. Sepsis Event Note - Evaluation Sepsis Screening Result: No Definite Risk - Focused Exam Vital Signs: Vital Signs Temp Pulse Resp BP Pulse Ox 08/27/19 14:15 98.6 F 72 20 148/64 H 100 Date Exam was Performed: 08/27/19 Time Exam was Performed: 19:17
== END 2019-08-27 15:27 | disposition home or self-care (01) ==
LOC: JD.ED 14:03
DX: R04.0 Epistaxis (principal); I10 Essential (primary) hypertension; Z88.8 Allergy status to other drugs, medicaments and biological substances; Z88.1 Allergy status to other antibiotic agents; Z88.5 Allergy status to narcotic agent; Z87.891 Personal history of nicotine dependence
CPT/HCPCS: 36415; 85014; 85018; 99283